=== PATIENT | female | born 1990 | race American Indian/Alaskan Native ===

== ENCOUNTER 2017-11-09 21:59 | Emergency (ER) | payer OTHER ==
[2017-11-09] MEDS ORDERED: Codeine/Promethazine 10-6.25 MG/5 ML Syrup 5 ML UD Cup PO ONE (22:00)
[2017-11-10] MEDS ORDERED: Codeine/Promethazine 10-6.25 MG/5 ML Syrup 5 ML UD Cup ONE (00:23)
--- NOTE | 2017-11-10 00:25 | EDM.PDOC ---
ED HPI GENERAL MEDICAL PROBLEM - General Chief Complaint: Respiratory Problem Stated Complaint: not feeling good hard time breathing [phone] Time Seen by Provider: 11/10/17 00:10 Source of Information: Reports: Patient, RN, RN Notes Reviewed History Limitations: Reports: No Limitations - History of Present Illness INITIAL COMMENTS - FREE TEXT/NARRATIVE: Pt presents to the ER with c/o cough, sore throat, unable to sleep and feeling of unable to breathe. She admits to fever, chills, body aches, and runny nose. 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 Onset: Gradual Generalized Pain Score (Numeric/FACES): 9 - Related Data Allergies Allergy/AdvReac Type Severity Reaction Status Date / Time No Known Allergies Allergy Verified 11/09/17 22:46 Home Meds: Home Meds Levothyroxine [Synthroid] 50 mcg PO ACBRK 09/14/13 [History] Past Medical History - Past Health History Medical/Surgical History: Denies Medical/Surgical History Cardiovascular History: Reports: Hypertension Endocrine/Metabolic History: Reports: Hyperthyroidism, Obesity/BMI 30+ Social & Family History - Tobacco Use Smoking Status *Q: Never Smoker Second Hand Smoke Exposure: No - Alcohol Use Days Per Week of Alcohol Use: 0 - Recreational Drug Use Recreational Drug Use: No ED ROS GENERAL - Review of Systems Review Of Systems: ROS reveals no pertinent complaints other than HPI. ED EXAM, GENERAL - Physical Exam Exam: See Below Exam Limited By: No Limitations General Appearance: Alert, WD/WN, No Apparent Distress Eye Exam: Bilateral Eye: EOMI, Normal Inspection, PERRL Ears: Normal External Exam, Hearing Grossly Normal Nose: Normal Inspection Throat/Mouth: Normal Inspection, Normal Voice, No Airway Compromise Head: Atraumatic, Normocephalic Neck: Normal Inspection, Supple, Non-Tender, Full Range of Motion Respiratory/Chest: No Respiratory Distress, Lungs Clear, Normal Breath Sounds, No Accessory Muscle Use, Chest Non-Tender Cardiovascular: Normal Peripheral Pulses, Regular Rate, Rhythm, No Edema, No Gallop, No JVD, No Murmur, No Rub Peripheral Pulses: 2+: Radial (L), Radial (R) GI/Abdominal: Normal Bowel Sounds, Soft, Non-Tender, No Distention (Female) Exam: Deferred Rectal (Female) Exam: Deferred Back Exam: Normal Inspection, Full Range of Motion, NT Extremities: Normal Inspection, Normal Range of Motion, Non-Tender, Normal Capillary Refill, No Pedal Edema Neurological: Alert, Oriented, CN II-XII Intact, Normal Cognition, Normal Gait, Normal Reflexes, No Motor/Sensory Deficits Psychiatric: Normal Affect, Normal Mood Skin Exam: Warm, Dry, Intact, Normal Color, No Rash Lymphatic: No Adenopathy Course - Vital Signs Last Recorded V/S: Last Vital Signs Temp 97.8 F 11/09/17 22:41 Pulse 107 H 11/09/17 22:41 Resp 18 11/09/17 22:41 BP 130/116 H 11/09/17 22:41 Pulse Ox 99 11/09/17 22:41 - Orders/Labs/Meds Meds: Medications Discontinued Medications Generic Name Dose Route Start Last Admin Trade Name Freq PRN Reason Stop Dose Admin Promethazine HCl/Codeine Confirm 11/10/17 00:23 11/10/17 00:27 Phenergan With Codeine Administered 11/10/17 00:24 Not Given Dose 5 ml .ROUTE .STK-MED ONE - Re-Assessments/Exams Free Text/Narrative Re-Assessment/Exam: 11/10/17 00:25 Discussed with the patient that her symptoms could be from influenza. She was informed that there is a shortage of testing swabs, but that she is already past the 48 hour window for Tamiflu. Pt was instructed on supportive care. Departure - Departure Time of Disposition: 00:23 Disposition: Home, Self-Care 01 Condition: Fair Clinical Impression: Upper respiratory infection Qualifiers: URI type: unspecified viral URI Qualified Code(s): J06.9 - Acute upper respiratory infection, unspecified - Discharge Information Instructions: Upper Respiratory Infection, Adult, [id number] Referrals: Lucia Austin NP [Primary Care Provider] - Forms: ED Department Discharge Additional Instructions: RX: Phenergan with Codeine Drink plenty of fluids Follow up with your primary care facility next week Rest Do not return to work until fever free for 24 hours.
== END 2017-11-10 00:31 | disposition home or self-care (01) ==
LOC: DL.ED 21:59
DX: J06.9 Acute upper respiratory infection, unspecified (principal); I10 Essential (primary) hypertension; E05.90 Thyrotoxicosis, unspecified without thyrotoxic crisis or storm
CPT/HCPCS: 99283; A9270

== ENCOUNTER 2020-08-18 22:09 | Emergency (ER) | payer OTHER ==
[2020-08-18] MEDS ORDERED: predniSONE 20 MG Tab PO ONE (22:53)
[2020-08-18] MEDS ORDERED: Albuterol 6.7 GM Inhaler INH ONE (22:53)
--- NOTE | 2020-08-18 22:59 | EDM.PDOC ---
ED HPI GENERAL MEDICAL PROBLEM - General Chief Complaint: Respiratory Problem Stated Complaint: COUGH, SHORTNESS OF BREATH Time Seen by Provider: 08/18/20 22:54 Source of Information: Reports: Patient History Limitations: Reports: No Limitations - History of Present Illness INITIAL COMMENTS - FREE TEXT/NARRATIVE: pos covid x 10 days not treated with anything, started having dry cough. denies F/C - Related Data Allergies Allergy/AdvReac Type Severity Reaction Status Date / Time No Known Allergies Allergy Verified 04/15/18 21:16 Home Meds: Home Meds Levothyroxine [Synthroid] 50 mcg PO ACBRK 09/14/13 [History] Blood Pressure Medication 1 tab PO DAILY 04/15/18 [History] Cholecalciferol (Vitamin D3) [Vitamin D] 1 tab PO DAILY 04/15/18 [History] Past Medical History - Past Health History Medical/Surgical History: Denies Medical/Surgical History HEENT History: Reports: None Cardiovascular History: Reports: Hypertension Respiratory History: Reports: None Gastrointestinal History: Reports: None Genitourinary History: Reports: None [employer]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 ED EXAM, GENERAL - Physical Exam Exam: See Below Exam Limited By: No Limitations General Appearance: Alert, WD/WN, Mild Distress, Other (COUGH SPASMS) Ears: Hearing Grossly Normal Throat/Mouth: Normal Voice, No Airway Compromise Head: Atraumatic Neck: Non-Tender, Full Range of Motion Respiratory/Chest: No Accessory Muscle Use, Rhonchi. No: Decreased Breath Sounds Cardiovascular: Regular Rate, Rhythm GI/Abdominal: Soft, Non-Tender (Female) Exam: Deferred Rectal (Female) Exam: Deferred Neurological: Alert, Oriented, Normal Cognition, Normal Gait, No Motor/Sensory Deficits Psychiatric: Flat Affect Skin Exam: Warm, Dry, Normal Color Lymphatic: No Adenopathy Course - Orders/Labs/Meds Orders: Active Orders 24 hr Category Date Time Status RT Post Treatment Assessment [RC] Click to Edit Care 08/18/20 22:53 Ordered RT Pre-Treatment Assessment [RC] Click to Edit Care 08/18/20 22:53 Ordered Meds: Medications Discontinued Medications Generic Name Dose Route Start Last Admin Trade Name Zev PRN Reason Stop Dose Admin Albuterol 6.7 gm 08/18/20 22:53 Proventil Hfa INH 08/18/20 22:54 ONETIME ONE Prednisone 20 mg 08/18/20 22:53 Prednisone PO 08/18/20 22:54 ONETIME ONE Departure - Departure Time of Disposition: 22:56 Disposition: Home, Self-Care 01 Condition: Good Clinical Impression: Bronchitis due to 2019-nCoV - Discharge Information Instructions: COVID-19 Frequently Asked Questions Additional Instructions: 1) take 1 to 2 puffs of inhaler 3 to 4 times daily for cough 2) drink lots of liquids 3) take tylenol or motrin as needed for fever and aches 4) follow up at clinic rx given; medrol dospak - My Orders Last 24 Hours: My Active Orders 08/18/20 22:53 RT Post Treatment Assessment [RC] Click to Edit RT Pre-Treatment Assessment [RC] Click to Edit - Assessment/Plan Last 24 Hours: My Active Orders 08/18/20 22:53 RT Post Treatment Assessment [RC] Click to Edit RT Pre-Treatment Assessment [RC] Click to Edit
[2020-08-18] MEDS ORDERED: Azithromycin 250 MG Tab PO ONE (23:21)
== END 2020-08-18 23:20 | disposition home or self-care (01) ==
LOC: DL.ED 22:09
DX: U07.1 COVID-19 (principal); J40 Bronchitis, not specified as acute or chronic; I10 Essential (primary) hypertension; E66.9 Obesity, unspecified
CPT/HCPCS: 99283; A9270; J7512

== ENCOUNTER 2021-06-08 00:23 | Emergency (ER) | payer BC, OTHER ==
--- NOTE | 2021-06-08 01:12 | EDM.PDOC ---
ED HPI GENERAL MEDICAL PROBLEM - General Chief Complaint: Respiratory Problem Stated Complaint: TROUBLE BREATHING Time Seen by Provider: 06/08/21 01:06 Source of Information: Reports: Patient - History of Present Illness INITIAL COMMENTS - FREE TEXT/NARRATIVE: Pt is here for shortness of breath and feeling like her heart is racing. It started earlier this evening while she was getting ready for bed. She tried taking one of her anxiety pills, but it didn't seem to help. She is very worried that something is wrong and cannot get her symptoms under control. No known cardiac history. Never had this before. No recent illnesses. She reports she is drinking plenty of water and other fluids. Chest Pain Score (Numeric/FACES): 4 - Related Data Allergies Allergy/AdvReac Type Severity Reaction Status Date / Time No Known Allergies Allergy Verified 04/15/18 21:16 Home Meds: Home Meds Levothyroxine [Synthroid] 50 mcg PO ACBRK 09/14/13 [History] Blood Pressure Medication 1 tab PO DAILY 04/15/18 [History] Cholecalciferol (Vitamin D3) [Vitamin D] 1 tab PO DAILY 04/15/18 [History] Past Medical History - Past Health History Medical/Surgical History: Denies Medical/Surgical History HEENT History: Reports: None Cardiovascular History: Reports: Hypertension Respiratory History: Reports: None Gastrointestinal History: Reports: None Genitourinary History: Reports: None [employer]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 Musculoskeletal History: Reports: None Neurological History: Reports: None Psychiatric History: Reports: None Endocrine/Metabolic History: Reports: Hyperthyroidism, Obesity/BMI 30+, Vitamin D Deficiency Hematologic History: Reports: None Immunologic History: Reports: None Oncologic (Cancer) History: Reports: None Dermatologic History: Reports: None - Infectious Disease History Infectious Disease History: Reports: Other (See Below) Other Infectious Disease History: covid Social & Family History - Family History Family Medical History: No Pertinent Family History - Caffeine Use Caffeine Use: Reports: Coffee ED ROS GENERAL - Review of Systems Review Of Systems: Comprehensive ROS is negative, except as noted in HPI. ED EXAM, GENERAL - Physical Exam Exam: See Below General Appearance: Alert, WD/WN, Anxious Eye Exam: Bilateral Eye: Normal Inspection Ears: Normal External Exam, Hearing Grossly Normal Throat/Mouth: Normal Voice, No Airway Compromise Head: Atraumatic, Normocephalic Neck: Supple, Non-Tender Respiratory/Chest: No Respiratory Distress, Lungs Clear, Normal Breath Sounds, No Accessory Muscle Use, Chest Non-Tender Cardiovascular: Normal Peripheral Pulses, No Murmur, Tachycardia GI/Abdominal: Soft, Non-Tender, No Distention (Female) Exam: Deferred Rectal (Female) Exam: Deferred Back Exam: Normal Inspection, Full Range of Motion Extremities: Normal Inspection, Normal Range of Motion, Normal Capillary Refill Neurological: Alert, Oriented, Normal Cognition, No Motor/Sensory Deficits Psychiatric: Normal Affect, Anxious Skin Exam: Warm, Dry, Intact, Normal Color, No Rash #1 Interpretation EKG Date: 06/08/21 Rhythm: NSR (sinus tachycardia) [place]: Normal P-Wave: Present QRS: Normal ST-T: Normal QT: Normal Course - Vital Signs Last Recorded V/S: Last Vital Signs Temp 97.2 F 06/08/21 01:03 Pulse 125 H 06/08/21 01:03 Resp 17 06/08/21 01:03 BP 157/92 H 06/08/21 01:03 Pulse Ox 99 06/08/21 01:03 - Orders/Labs/Meds Orders: Active Orders 24 hr Category Date Time Status Peripheral IV Care [RC] . DIRECTED Care 06/08/21 01:11 Ordered Sodium Chloride 0.9% [Saline Flush] Med 06/08/21 01:10 Ordered 10 ml FLUSH ASDIRECTED PRN Peripheral IV Insertion Adult [OM.PC] Stat Oth 06/08/21 01:09 Ordered Medication Orders Sodium Chloride (Sodium Chloride 0.9% 10 Ml Syringe) 10 ml FLUSH ASDIRECTED PRN PRN Reason: Keep Vein Open Last Admin: 06/08/21 01:34 Dose: 10 ml Documented by: JESSE Labs: Laboratory Tests 06/08/21 06/08/21 06/08/21 Range/Units 01:25 01:25 01:25 WBC 14.7 H (5.0-10.0) 10^3/uL RBC 5.20 (4.2-5.4) 10^6/uL Hgb 13.3 (12.0-16.0) g/dL Hct 41.2 (37.0-47.0) % MCV 79.2 L (80-100) fL MCH 25.6 L (27.0-34.0) pg MCHC 32.3 L (33.0-35.0) g/dL Plt Count 421 (150-450) 10^3/uL Neut % (Auto) 73.5 (42.2-75.2) % Lymph % (Auto) 18.4 L (20.5-50.1) % [place] % (Auto) 5.6 (2-8) % Eos % (Auto) 2.4 (1.0-3.0) % Baso % (Auto) 0.1 (0.0-1.0) % Sodium 139 (136-145) mmol/L Potassium 3.7 (3.5-5.1) mmol/L Chloride 104 (98-107) mmol/L Carbon Dioxide 27 (21-32) mmol/L Anion Gap 11.7 (7-13) mEq/L BUN 13 (7-18) mg/dL Creatinine 0.85 (0.55-1.02) mg/dL Est Cr Clr Drug Dosing 113.71 mL/min Estimated GFR (MDRD) > 60 BUN/Creatinine Ratio 15.3 (No establ ref range) Glucose 132 H (70-99) mg/dL Calcium 9.0 (8.5-10.1) mg/dL Total Bilirubin 0.2 (0.2-1.0) mg/dL AST 12 L (15-37) U/L ALT 23 (14-59) U/L Alkaline Phosphatase 85 (46-116) U/L Troponin I High Sens 4 (<=51) pg/mL Total Protein 8.0 (6.4-8.2) g/dL Albumin 3.6 (3.4-5.0) g/dL Globulin 4.4 Albumin/Globulin Ratio 0.8 Urine Opiates Screen (NEGATIVE) Ur Oxycodone Screen (NEGATIVE) Urine Methadone Screen (NEGATIVE) Ur Barbiturates Screen (NEGATIVE) U Tricyclic Antidepress (NEGATIVE) Ur Phencyclidine Scrn (NEGATIVE) Ur Amphetamine Screen (NEGATIVE) U Methamphetamines Scrn (NEGATIVE) Urine MDMA Screen (NEGATIVE) U Benzodiazepines Scrn (NEGATIVE) Urine Cocaine Screen (NEGATIVE) U Marijuana (THC) Screen (NEGATIVE) Ethyl Alcohol < 3 (0) mg/dL 06/08/21 Range/Units 02:08 WBC (5.0-10.0) 10^3/uL RBC (4.2-5.4) 10^6/uL Hgb (12.0-16.0) g/dL Hct (37.0-47.0) % MCV (80-100) fL MCH (27.0-34.0) pg MCHC (33.0-35.0) g/dL Plt Count (150-450) 10^3/uL Neut % (Auto) (42.2-75.2) % Lymph % (Auto) (20.5-50.1) % [place] % (Auto) (2-8) % Eos % (Auto) (1.0-3.0) % Baso % (Auto) (0.0-1.0) % Sodium (136-145) mmol/L Potassium (3.5-5.1) mmol/L Chloride (98-107) mmol/L Carbon Dioxide (21-32) mmol/L Anion Gap (7-13) mEq/L BUN (7-18) mg/dL Creatinine (0.55-1.02) mg/dL Est Cr Clr Drug Dosing mL/min Estimated GFR (MDRD) BUN/Creatinine Ratio (No establ ref range) Glucose (70-99) mg/dL Calcium (8.5-10.1) mg/dL Total Bilirubin (0.2-1.0) mg/dL AST (15-37) U/L ALT (14-59) U/L Alkaline Phosphatase (46-116) U/L Troponin I High Sens (<=51) pg/mL Total Protein (6.4-8.2) g/dL Albumin (3.4-5.0) g/dL Globulin Albumin/Globulin Ratio Urine Opiates Screen Negative (NEGATIVE) Ur Oxycodone Screen Negative (NEGATIVE) Urine Methadone Screen Negative (NEGATIVE) Ur Barbiturates Screen Negative (NEGATIVE) U Tricyclic Antidepress Negative (NEGATIVE) Ur Phencyclidine Scrn Negative (NEGATIVE) Ur Amphetamine Screen Negative (NEGATIVE) U Methamphetamines Scrn Negative (NEGATIVE) Urine MDMA Screen Negative (NEGATIVE) U Benzodiazepines Scrn Negative (NEGATIVE) Urine Cocaine Screen Negative (NEGATIVE) U Marijuana (THC) Screen Positive H (NEGATIVE) Ethyl Alcohol (0) mg/dL Meds: Medications Generic Name Dose Route Start Last Admin Trade Name Freq PRN Reason Stop Dose Admin Sodium Chloride 10 ml 06/08/21 01:10 06/08/21 01:34 Sodium Chloride 0.9% 10 Ml Syringe FLUSH 10 ml ASDIRECTED PRN Administration Keep Vein Open Discontinued Medications Generic Name Dose Route Start Last Admin Trade Name Zev PRN Reason Stop Dose Admin Sodium Chloride 1,000 mls @ 999 mls/hr 06/08/21 01:10 06/08/21 01:33 Normal Saline IV 06/08/21 02:10 999 mls/hr .BOLUS ONE Administration Labetalol HCl 10 mg 06/08/21 01:10 06/08/21 01:33 Labetalol 20 Mg/4 Ml Syringe IVPUSH 06/08/21 01:11 10 mg ONETIME ONE Administration Lorazepam 0.5 mg 06/08/21 02:55 06/08/21 03:08 Lorazepam 2 Mg/Ml Sdv IVPUSH 06/08/21 02:56 0.5 mg ONETIME ONE Administration - Re-Assessments/Exams Free Text/Narrative Re-Assessment/Exam: Pt is feeling better and is asking about going home. Reviewed reasons to call/return to the ER. Pt verbalized understanding. 06/08/21 03:43 Departure - Departure Time of Disposition: 03:44 Disposition: Home, Self-Care 01 Condition: Fair Clinical Impression: Anxiety attack - Discharge Information *PRESCRIPTION DRUG MONITORING PROGRAM REVIEWED*: Not Applicable *COPY OF PRESCRIPTION DRUG MONITORING REPORT IN PATIENT BRYAN: Not Applicable Instructions: Managing Anxiety, Adult Forms: ED Department Discharge Additional Instructions: Continue taking your regularly prescribed medications If you develop worsening chest pain or palpitations, call/return to the ER Follow up with your primary care provider in 3-5 days Sepsis Event Note (ED) - Focused Exam Vital Signs: Vital Signs Temp Pulse Resp BP Pulse Ox 06/08/21 01:03 97.2 F 125 H 17 157/92 H 99 - My Orders Last 24 Hours: My Active Orders 06/08/21 01:09 Peripheral IV Insertion Adult [OM.PC] Stat 06/08/21 01:10 Sodium Chloride 0.9% [Saline Flush] 10 ml FLUSH ASDIRECTED PRN 06/08/21 01:11 Peripheral IV Care [RC] . DIRECTED - Assessment/Plan Last 24 Hours: My Active Orders 06/08/21 01:09 Peripheral IV Insertion Adult [OM.PC] Stat 06/08/21 01:10 Sodium Chloride 0.9% [Saline Flush] 10 ml FLUSH ASDIRECTED PRN 06/08/21 01:11 Peripheral IV Care [RC] . DIRECTED
[2021-06-08] MEDS: Labetalol 20 MG/4 ML Syringe IVPUSH ONE (01:33)
[2021-06-08] MEDS: Sodium Chloride 0.9% 1,000 ML IV ONE (01:33)
[2021-06-08] MEDS: Sodium Chloride 0.9% 10 ML Syringe FLUSH PRN (01:34)
[2021-06-08 01:55] LABS: ANION GAP 11.7 mEq/L (7-13); CHLORIDE,CL 104 mmol/L (98-107); SODIUM,NA 139 mmol/L (136-145)
[2021-06-08 02:25] LABS: AMPHETAMINES,URINE NEGATIVE (NEGATIVE); BARBITURATES,URINE NEGATIVE (NEGATIVE); BENZODIAZEPINE,URINE NEGATIVE (NEGATIVE); MDMA (ECSTASY), URINE NEGATIVE (NEGATIVE); METHADONE,URINE NEGATIVE (NEGATIVE); METHAMPHETAMINES,URINE NEGATIVE (NEGATIVE); OPIATES,URINE NEGATIVE (NEGATIVE); OXYCODONE,URINE NEGATIVE (NEGATIVE); PHENCYCLIDINE,URINE NEGATIVE (NEGATIVE); TCA,URINE NEGATIVE (NEGATIVE)
--- NOTE | 2021-06-08 03:05 | CR ---
PROCEDURE INFORMATION: Exam: XR Chest Exam date and time: 06/08/2021 1:50 AM Age: 30 years old Clinical indication: Shortness of breath; Additional info: Heart racing, shortness of breath TECHNIQUE: Imaging protocol: XR of the chest. Views: 1 view. COMPARISON: CR CHEST PA/LAT 03/12/2013 12:24 AM FINDINGS: Lungs: Unremarkable. No consolidation. Pleural spaces: Unremarkable. No pleural effusion. No pneumothorax. Heart/Mediastinum: Unremarkable. No cardiomegaly. Bones/joints: Unremarkable. IMPRESSION: No acute findings.
[2021-06-08] MEDS: LORazepam 2 MG/ML SDV IVPUSH ONE (03:08)
== END 2021-06-08 03:57 | disposition home or self-care (01) ==
LOC: DL.ED 00:23
DX: F41.9 Anxiety disorder, unspecified (principal); I10 Essential (primary) hypertension; E03.9 Hypothyroidism, unspecified; E66.9 Obesity, unspecified; Z68.42 Body mass index [BMI] 45.0-49.9, adult; Z79.899 Other long term (current) drug therapy
CPT/HCPCS: 36415; 71045; 80053; 80305; 80307; 84484; 85025; 93005; 96374; 96375; 99285; J2060; J3490; J7030

== ENCOUNTER 2022-08-12 22:38 | Emergency (ER) | payer BC, OTHER | END 2022-08-12 23:27 | disposition home or self-care (01) | LOC: DL.ED 22:38 | DX: B34.9 Viral infection, unspecified (principal); I10 Essential (primary) hypertension; Z79.899 Other long term (current) drug therapy | CPT/HCPCS: 99283 ==